=== PATIENT | female | born 1975 | race Caucasian/White ===

== ENCOUNTER 2017-03-31 14:20 | Inpatient (IN) | payer OTHER ==
[2017-03-31] MEDS ORDERED: NALOXONE 0.4 MG/ML 10 ML VIAL IVP STA (14:24)
[2017-03-31] MEDS ORDERED: ONDANSETRON 4 MG/2 ML VIAL IVP STA (14:24)
[2017-03-31] MEDS ORDERED: SODIUM CHLORIDE 0.9% 1,000 ML IV STA ×3 (14:26→14:33)
[2017-03-31] MEDS ORDERED: NALOXONE 0.4 MG/ML 1 ML VIAL IV STA (14:26)
--- NOTE | 2017-03-31 14:45 | ED ---
General Adult HPI - General Chief complaint: Overdose Stated complaint: Overdose Time Seen by Provider: 03/31/17 14:22 Source: police, EMS, RN notes reviewed, old records reviewed Mode of arrival: EMS Limitations: altered mental status - History of Present Illness Initial comments: This is a 41-year-old female to the ER for evaluation of unresponsive. Patient' s found passed out in the parking lot at the [employer] car. Patient was mildly responsive to Narcan per EMS but has remained unresponsive. The emergency room. Patient is arousable but still very somnolent. Patient is breathing. History obtained from otherwise EMS and patient's chart - Related Data Home Medications Medication Instructions Recorded Confirmed Loperamide [Imodium] 2 mg PO QID MDD 4 tablets 03/31/17 03/31/17 QUEtiapine FUMARATE [SEROquel] 300 mg PO HS 03/31/17 03/31/17 QUEtiapine [SEROquel] 50 mg PO BID 03/31/17 03/31/17 clonazePAM [KlonoPIN] 1 mg PO BID 03/31/17 03/31/17 lamoTRIgine [LaMICtal] 75 mg PO BID 03/31/17 03/31/17 Allergies Allergy/AdvReac Type Severity Reaction Status Date / Time Unable to Assess Allergy Unverified 03/31/17 14:30 Review of Systems ROS Statement: Those systems with pertinent positive or pertinent negative responses have been documented in the HPI. ROS Other: All systems not noted in ROS Statement are negative. Past Medical History Past Medical History: Unable to Obtain Past Surgical History: Unable to Obtain Smoking Status: Unknown if ever smoked Past Alcohol Use History: Unable to Obtain Past Drug Use History: Unable to Obtain General Exam Limitations: altered mental status General appearance: lethargic, obtunded, in distress Head exam: Present: atraumatic, normocephalic, normal inspection Eye exam: Present: normal appearance, PERRL, EOMI. Absent: scleral icterus, conjunctival injection, periorbital swelling ENT exam: Present: normal exam, mucous membranes moist Neck exam: Present: normal inspection. Absent: tenderness, meningismus, lymphadenopathy Respiratory exam: Present: normal lung sounds bilaterally. Absent: respiratory distress, wheezes, rales, rhonchi, stridor Cardiovascular Exam: Present: normal rhythm, tachycardia, normal heart sounds. Absent: systolic murmur, diastolic murmur, rubs, gallop, clicks GI/Abdominal exam: Present: soft, normal bowel sounds. Absent: distended, tenderness, guarding, rebound, rigid Extremities exam: Present: normal inspection, full ROM, normal capillary refill. Absent: tenderness, pedal edema, joint swelling, calf tenderness Back exam: Present: normal inspection Neurological exam: Present: alert, oriented X3, CN II-XII intact Psychiatric exam: Present: normal affect, normal mood Skin exam: Present: warm, dry, intact, normal color. Absent: rash Course Vital Signs 03/31/17 03/31/17 03/31/17 14:21 14:47 15:02 Temperature 97.9 F Pulse Rate 134 H 129 H 126 H Respiratory 16 18 18 Rate Blood Pressure 105/74 118/56 125/59 O2 Sat by Pulse 97 99 99 Oximetry 03/31/17 03/31/17 15:32 15:47 Temperature Pulse Rate 112 H 110 H Respiratory 18 18 Rate Blood Pressure 95/45 92/48 O2 Sat by Pulse 99 96 Oximetry - Reevaluation(s) Reevaluation #1: 03/31/17 14:44 Patient is generally unresponsive with no response to Narcan Reevaluation #2: 03/31/17 14:44 Patient is maintaining airway, no decreased oxygen saturation EKG Findings - EKG Comments: EKG Findings:: EKG shows sinus tachycardia rate 125, MO 160, QRS 84, QTc 502 Medical Decision Making - Medical Decision Making 41. The ER with overdose, found overdose not sure whether suicidal intent has overdosed, patient had multiple medications with her and tolerated pharmaceutic , subscribed, Main medication missing was quetiapine. Patient does have positive gag is breathing with oxygen saturations are 96%, patient will be admitted for monitoring of airway and level of consciousness - Lab Data Result diagrams: 03/31/17 14:58 03/31/17 14:58 Lab Results 03/31/17 03/31/17 03/31/17 Range/Units 14:58 14:58 14:58 WBC 6.9 (3.8-10.6) k/uL RBC 4.16 (3.80-5.40) m/uL Hgb 12.4 (11.4-16.0) gm/dL Hct 38.9 (34.0-46.0) % MCV 93.5 (80.0-100.0) fL MCH 29.8 (25.0-35.0) pg MCHC 31.9 (31.0-37.0) g/dL RDW 12.9 (11.5-15.5) % Plt Count 194 (150-450) k/uL Neutrophils % 77 % Lymphocytes % 16 % Monocytes % 5 % Eosinophils % 0 % Basophils % 0 % Neutrophils # 5.3 (1.3-7.7) k/uL Lymphocytes # 1.1 (1.0-4.8) k/uL Monocytes # 0.3 (0-1.0) k/uL Eosinophils # 0.0 (0-0.7) k/uL Basophils # 0.0 (0-0.2) k/uL PT (9.0-12.0) sec INR (<1.2) Sodium 138 (137-145) mmol/L Potassium 3.1 L (3.5-5.1) mmol/L Chloride 110 H (98-107) mmol/L Carbon Dioxide 16 L (22-30) mmol/L Anion Gap 12 mmol/L BUN 14 (7-17) mg/dL Creatinine 0.77 (0.52-1.04) mg/dL Est GFR (MDRD) Af Amer >60 (>60 ml/min/1.73 sqM) Est GFR (MDRD) Non-Af >60 (>60 ml/min/1.73 sqM) Glucose 250 H (74-99) mg/dL Calcium 8.3 L (8.4-10.2) mg/dL Total Bilirubin 0.3 (0.2-1.3) mg/dL AST 16 (14-36) U/L ALT 27 (9-52) U/L Alkaline Phosphatase 40 (38-126) U/L Total Creatine Kinase 43 (30-135) U/L CK-MB (CK-2) 0.4 (0.0-2.4) ng/mL CK-MB (CK-2) Rel Index 0.9 Troponin I <0.012 (0.000-0.034) ng/mL Total Protein 6.0 L (6.3-8.2) g/dL Albumin 3.5 (3.5-5.0) g/dL Lipase 33 (23-300) U/L Urine HCG, Qual (Not Detectd) Salicylates <1.0 mg/dL Urine Opiates Screen (NotDetected) Ur Oxycodone Screen (NotDetected) Urine Methadone Screen (NotDetected) Ur Propoxyphene Screen (NotDetected) Acetaminophen <10.0 ug/mL Ur Barbiturates Screen (NotDetected) U Tricyclic Antidepress (NotDetected) Ur Phencyclidine Scrn (NotDetected) Ur Amphetamines Screen (NotDetected) U Methamphetamines Scrn (NotDetected) U Benzodiazepines Scrn (NotDetected) Urine Cocaine Screen (NotDetected) U Marijuana (THC) Screen (NotDetected) Serum Alcohol <10 mg/dL 03/31/17 03/31/17 03/31/17 Range/Units 14:58 15:04 15:04 WBC (3.8-10.6) k/uL RBC (3.80-5.40) m/uL Hgb (11.4-16.0) gm/dL Hct (34.0-46.0) % MCV (80.0-100.0) fL MCH (25.0-35.0) pg MCHC (31.0-37.0) g/dL RDW (11.5-15.5) % Plt Count (150-450) k/uL Neutrophils % % Lymphocytes % % Monocytes % % Eosinophils % % Basophils % % Neutrophils # (1.3-7.7) k/uL Lymphocytes # (1.0-4.8) k/uL Monocytes # (0-1.0) k/uL Eosinophils # (0-0.7) k/uL Basophils # (0-0.2) k/uL PT 11.5 (9.0-12.0) sec INR 1.2 H (<1.2) Sodium (137-145) mmol/L Potassium (3.5-5.1) mmol/L Chloride (98-107) mmol/L Carbon Dioxide (22-30) mmol/L Anion Gap mmol/L BUN (7-17) mg/dL Creatinine (0.52-1.04) mg/dL Est GFR (MDRD) Af Amer (>60 ml/min/1.73 sqM) Est GFR (MDRD) Non-Af (>60 ml/min/1.73 sqM) Glucose (74-99) mg/dL Calcium (8.4-10.2) mg/dL Total Bilirubin (0.2-1.3) mg/dL AST (14-36) U/L ALT (9-52) U/L Alkaline Phosphatase (38-126) U/L Total Creatine Kinase (30-135) U/L CK-MB (CK-2) (0.0-2.4) ng/mL CK-MB (CK-2) Rel Index Troponin I (0.000-0.034) ng/mL Total Protein (6.3-8.2) g/dL Albumin (3.5-5.0) g/dL Lipase (23-300) U/L Urine HCG, Qual Not Detected (Not Detectd) Salicylates mg/dL Urine Opiates Screen Not Detected (NotDetected) Ur Oxycodone Screen Not Detected (NotDetected) Urine Methadone Screen Not Detected (NotDetected) Ur Propoxyphene Screen Not Detected (NotDetected) Acetaminophen ug/mL Ur Barbiturates Screen Not Detected (NotDetected) U Tricyclic Antidepress Detected H (NotDetected) Ur Phencyclidine Scrn Not Detected (NotDetected) Ur Amphetamines Screen Not Detected (NotDetected) U Methamphetamines Scrn Not Detected (NotDetected) U Benzodiazepines Scrn Not Detected (NotDetected) Urine Cocaine Screen Not Detected (NotDetected) U Marijuana (THC) Screen Detected H (NotDetected) Serum Alcohol mg/dL Disposition Clinical Impression: Drug overdose Disposition: ADMITTED IP TO THIS [facility] Condition: Serious Referrals: None,Stated [Primary Care Provider] - 1-2 days
[2017-03-31 15:10] LABS: Basophils % (A) 0 %; CH 30.5; CHCM 32.8; Eosinophils % (A) 0 %; HCT 38.9 % (34.0-46.0); HDW 2.23; HGB 12.4 gm/dL (11.4-16.0); Luc # (Auto) 0.09; Luc % (Auto) 1; Lymphocytes # (A) 1.1 k/uL (1.0-4.8); Lymphocytes % (A) 16 %; MCH 29.8 pg (25.0-35.0); MCHC 31.9 g/dL (31.0-37.0); MCV 93.5 fL (80.0-100.0); Mean Platelet Volume 7.5; Monocytes # (A) 0.3 k/uL (0-1.0); Monocytes % (A) 5 %; Neutrophils # (A) 5.3 k/uL (1.3-7.7); Neutrophils % (A) 77 %; RBC 4.16 m/uL (3.80-5.40); RDW 12.9 % (11.5-15.5); WBC 6.9 k/uL (3.8-10.6); WBC (Perox) 7.02
[2017-03-31 15:17] LABS: INR 1.2 (<1.2); Prothrombin Time 11.5 sec (9.0-12.0)
[2017-03-31 15:19] LABS: ALT 27 U/L (9-52); AST 16 U/L (14-36); Acetaminophen <10.0 ug/mL; Alcohol <10 mg/dL; Alkaline Phosphatase 40 U/L (38-126); Anion Gap 12 mmol/L; Blood Urea Nitrogen 14 mg/dL (7-17); Calcium 8.3 mg/dL (8.4-10.2); Carbon Dioxide 16 mmol/L (22-30); Chloride 110 mmol/L (98-107); Glucose 250 mg/dL (74-99); Non-African American GFR(MDRD) >60 (>60 ml/min/1.73 sqM); Potassium 3.1 mmol/L (3.5-5.1); Salicylate <1.0 mg/dL; Sodium 138 mmol/L (137-145); Total Bilirubin 0.3 mg/dL (0.2-1.3)
[2017-03-31 15:27] LABS: Creatine Kinase 43 U/L (30-135)
[2017-03-31 15:41] LABS: Creatine Kinase MB 0.4 ng/mL (0.0-2.4); Troponin I <0.012 ng/mL (0.000-0.034)
[2017-03-31] MEDS: POTASSIUM CHLORIDE 20 MEQ, LIDOCAINE 2% INJ 20 MG in SODIUM CHLORIDE 0.9% 100 ML IVPB SCH ×3 (17:09→22:09)
[2017-03-31] MEDS ORDERED: SODIUM CHLORIDE 0.9% 1,000 ML IV ONE ×2 (17:39→19:37)
[2017-03-31 18:43] LABS: Glucose,Whole Blood 95 mg/dL (75-99)
[2017-03-31] MEDS ORDERED: PROPOFOL 1,000 MG/100 ML VIAL IV ONE (19:10)
[2017-03-31] MEDS ORDERED: NOREPINEPHRIN 4 MG-0.9% NS PMX 4 MG/250 ML ML IV ONE (19:10)
[2017-03-31] MEDS ORDERED: MIDAZOLAM 2 MG/2 ML VIAL ONE (19:20)
[2017-03-31] MEDS ORDERED: SUCCINYLCHOLINE CHLORIDE 100 MG/5 ML SYR IV ONE (19:20)
[2017-03-31] MEDS ORDERED: PROPOFOL 10 MG/ML 20 ML VIAL IV ONE (19:20)
[2017-03-31] MEDS ORDERED: ROCURONIUM BROMIDE 10 MG/ML 10 ML VIAL IV ONE (19:20)
[2017-03-31 19:31] LABS: ABG HCO3 14 mmol/L (21-25); ABG PCO2 24 mmHg (35-45); ABG PH 7.38 (7.35-7.45); ABG PO2 115 mmHg (83-108); ABG TCO2 15 mmol/L (19-24)
[2017-03-31 19:32] LABS: ABG Base Excess -10.2 mmol/L
[2017-03-31 19:43] LABS: Amorphous Sediment,Urine Rare /hpf; Appearance,Urine Cloudy (Clear); Bilirubin,Urine Negative (Negative); Glucose,Urine (UA) 4+ (Negative); Ketones,Urine Negative (Negative); Leukocyte Esterase,Urine Negative (Negative); Mucus,Urine Rare /hpf; Nitrite,Urine Negative (Negative); Particle Count 4532; Protein,Urine 1+ (Negative); Specific Gravity,Urine 1.015 (1.001-1.035); UA Billing (MACRO vs. MICRO) MICRO; Urobilinogen,Urine <2.0 mg/dL (<2.0); WBC,Urine 1 /hpf (0-5)
--- NOTE | 2017-03-31 19:44 | XR ---
EXAMINATION TYPE: XR chest 1V portable DATE OF EXAM: 03/31/2017 COMPARISON: NONE HISTORY: Check tube placement TECHNIQUE: Single frontal view of the chest is obtained. FINDINGS: Nasogastric tube appears in good position. Endotracheal tube is in good position. Lungs ar e clear. There is no heart failure. There are chest leads. IMPRESSION: No active cardiopulmonary disease.
[2017-03-31] MEDS: PROPOFOL 1,000 MG/100 ML VIAL IV SCH ×2 (19:52→23:32)
[2017-03-31] MEDS ORDERED: NOREPINEPHRIN 4 MG-0.9% NS PMX 4 MG/250 ML ML IV SCH (20:00)
[2017-03-31 20:22] LABS: ABG Base Excess -8.3 mmol/L; ABG HCO3 17 mmol/L (21-25); ABG PCO2 34 mmHg (35-45); ABG PH 7.31 (7.35-7.45); ABG PO2 184 mmHg (83-108); ABG TCO2 18 mmol/L (19-24)
[2017-04-01 00:05] LABS: Glucose,Whole Blood 112 mg/dL (75-99)
[2017-04-01] MEDS: PANTOPRAZOLE 40 MG/10 ML VIAL IVP SCH ×3 (00:18→21:16)
[2017-04-01] MEDS: PROPOFOL 1,000 MG/100 ML VIAL IV SCH ×2 (03:51→07:33)
[2017-04-01 05:30] LABS: CH 29.5; HCT 36.8 % (34.0-46.0); HDW 2.21; HGB 11.5 gm/dL (11.4-16.0); Hypochromasia Slight; MCH 29.8 pg (25.0-35.0); MCHC 31.1 g/dL (31.0-37.0); MCV 95.8 fL (80.0-100.0); Mean Platelet Volume 7.7; RBC 3.85 m/uL (3.80-5.40); RDW 14.7 % (11.5-15.5); WBC 11.9 k/uL (3.8-10.6)
[2017-04-01 05:37] LABS: INR 1.1 (<1.2); Partial Thromboplastin Time 22.3 sec (22.0-30.0); Prothrombin Time 10.7 sec (9.0-12.0)
[2017-04-01 05:54] LABS: ALT 35 U/L (9-52); AST 16 U/L (14-36); Alkaline Phosphatase 40 U/L (38-126); Anion Gap 6 mmol/L; Blood Urea Nitrogen 10 mg/dL (7-17); Calcium 7.6 mg/dL (8.4-10.2); Carbon Dioxide 19 mmol/L (22-30); Chloride 117 mmol/L (98-107); Glucose 103 mg/dL (74-99); Magnesium 1.7 mg/dL (1.6-2.3); Non-African American GFR(MDRD) >60 (>60 ml/min/1.73 sqM); Phosphorus 2.4 mg/dL (2.5-4.5); Potassium 3.9 mmol/L (3.5-5.1); Sodium 142 mmol/L (137-145); Total Bilirubin 0.2 mg/dL (0.2-1.3); Total Protein 5.5 g/dL (6.3-8.2)
[2017-04-01] MEDS: MAGNESIUM SULFATE-D5W PMX 1 GM in DEXTROSE/WATER 1 100ML.BAG IVPB SCH ×2 (08:03→09:34)
[2017-04-01] MEDS: CHLORHEXIDINE GLUCONATE 15 ML CUP MUCOUS MEM SCH ×2 (08:04→20:29)
--- NOTE | 2017-04-01 08:30 | XR ---
EXAMINATION TYPE: XR chest 1V portable DATE OF EXAM: 04/01/2017 Comparison: 03/31/2017 Clinical History: 41-year-old female tube placement Findings: ET tube tip is at the level of the medial clavicular heads. NG tube has been pulled back and side ho le is located 6 cm above the GE junction. The tip is only 2.5 cm below the GE junction. The cardiomediastinal silhouette, aorta, and pulmonary vasculature are within normal limits. As chantal red to 03/31/2017, there is new airspace opacity throughout the left base, left lower lobe. Impression: 1. New consolidation at the basilar left lower lobe. Correlate for pneumonia. Underlying small effusi on difficult to exclude. 2. The NG tube has been pulled back. It could be advanced by 9 cm into the stomach.
[2017-04-01] MEDS: ENOXAPARIN 40 MG/0.4 ML SYRINGE SQ SCH (10:58)
[2017-04-01] MEDS: POTASSIUM CHLORIDE 10 MEQ, LIDOCAINE 2% INJ 10 MG in SODIUM CHLORIDE 0.9% 100 ML IV SCH ×2 (10:59→14:04)
[2017-04-01] MEDS: NICOTINE 21MG/24HR PATCH TRANSDERM SCH (14:03)
--- NOTE | 2017-04-01 14:06 | P.CNPUL ---
History of Present Illness Consult date: 04/01/17 Requesting physician: Jayne Austin Reason for consult: other (Seroquel overdose) Chief complaint: Altered mental status and passing out History of present illness: This is a 41-year-old female with history of depression, previous history of drug overdose, patient asked out in the parking, just prior to being brought to the emergency room. Patient was quite lethargic and obtunded when EMS arrived, Narcan was given, remained unresponsive, patient was arousable upon arrival to the ER but very somnolent. I received a call from the ER physician about this patient, and he felt that the patient was able to protect her airways, and did not feel the patient needed to be intubated. Apparently the patient tried to commit suicide with unknown quantity of Seroquel. Patient was admitted to the ICU without being intubated, however upon arrival to the ICU, I was notified by the nurse was taking care of the patient that the patient is extremely somnolent , cannot be aroused easily, patient is barely responding to sternal rubs, and her gag reflex was significantly diminished. Hence I recommended immediate intubation and mechanical ventilation overnight. Early this morning, I evaluated the patient off propofol and I felt that the patient could be weaned and extubated. Hence she was placed on a short course of pressure support of 8 , and CPAP, patient was noted to tolerate the weaning process quite well, hence I recommended extubation. Patient stated to me that she did that on purpose, and she was doing it over and over again. Hence I recommended psychiatric consultation, and most likely the patient will need to be admitted to psychiatry in the next 24 hours. Chest x-ray on admission showed no evidence of active disease. All her labs this morning were noted to be relatively unremarkable. And ABG while on mechanical ventilation was also reviewed. Patient feels depressed, denies any headaches no blurred vision no dizziness, no chest pain no nausea no vomiting no abdominal pain. Apparently the patient had previous episodes of suicidal attempts. Review of Systems 14 point review of systems were obtained, please refer to pertinent positives in HPI, otherwise remaining systems are negative. Past Medical History Past Medical History: GERD/Reflux Additional Past Medical History / Comment(s): History of depression History of Any Multi-Drug Resistant Organisms: None Reported Past Surgical History: Section Additional Past Surgical History / Comment(s): breast augmentation Past Anesthesia/Blood Transfusion Reactions: No Reported Reaction Smoking Status: Current every day smoker Medications and Allergies Home Medications Medication Instructions Recorded Confirmed Type Loperamide [Imodium] 2 mg PO QID MDD 4 tablets 03/31/17 03/31/17 History QUEtiapine FUMARATE [SEROquel] 300 mg PO HS 03/31/17 03/31/17 History QUEtiapine [SEROquel] 50 mg PO BID 03/31/17 03/31/17 History clonazePAM [KlonoPIN] 1 mg PO BID 03/31/17 03/31/17 History lamoTRIgine [LaMICtal] 75 mg PO BID 03/31/17 03/31/17 History Allergies Allergy/AdvReac Type Severity Reaction Status Date / Time Unable to Assess Allergy Unverified 04/01/17 06:14 Physical Exam Vitals: Vital Signs Temp Pulse Resp BP Pulse Ox 04/01/17 13:30 100 25 H 105/60 96 04/01/17 13:00 99 19 105/55 98 04/01/17 12:30 97 26 H 102/56 97 04/01/17 12:00 97 16 104/55 97 04/01/17 11:30 96 20 114/64 97 04/01/17 11:00 96 25 H 104/60 97 04/01/17 10:30 97 27 H 99/56 97 04/01/17 10:00 95 21 99/55 97 04/01/17 09:30 97 14 105/57 96 04/01/17 09:25 98 04/01/17 09:00 96 18 91/58 97 04/01/17 08:30 101 H 27 H 128/59 96 04/01/17 08:00 98 23 110/56 99 04/01/17 07:30 98.2 F 97 19 113/50 98 04/01/17 07:00 98 20 125/50 97 04/01/17 06:30 103 H 30 H 109/53 98 04/01/17 06:00 101 H 21 116/47 100 04/01/17 05:30 101 H 23 119/49 100 04/01/17 05:00 100 22 125/54 100 04/01/17 04:30 100 22 115/53 100 04/01/17 04:00 98.8 F 96 18 111/43 100 04/01/17 03:30 98 24 102/45 100 04/01/17 03:00 96 19 114/48 100 04/01/17 02:30 96 18 109/49 100 04/01/17 02:00 96 17 99/44 100 04/01/17 01:30 97 18 112/51 100 04/01/17 01:00 98.4 F 98 18 105/44 100 04/01/17 00:30 101 H 14 96/42 100 04/01/17 00:00 98 18 115/48 100 03/31/17 23:30 96 17 101/47 100 03/31/17 23:00 97 16 101/41 100 03/31/17 22:30 97 16 104/46 100 03/31/17 22:00 89 15 71/40 100 03/31/17 21:30 93 17 96/44 100 03/31/17 21:15 96 17 100 03/31/17 21:00 100 18 115/51 100 03/31/17 20:40 101 H 23 108/47 100 03/31/17 20:30 101 H 20 97/57 100 03/31/17 20:20 102 H 21 97/57 100 03/31/17 20:10 102 H 18 91/46 100 03/31/17 20:00 97.5 F L 99 16 93/46 100 03/31/17 19:50 101 H 16 88/59 100 03/31/17 19:40 100 16 92/47 100 03/31/17 19:30 103 H 15 84/40 100 03/31/17 19:20 110 H 13 112/59 90 L 03/31/17 19:10 111 H 16 97/51 100 03/31/17 19:00 111 H 18 100/44 100 03/31/17 18:50 111 H 19 95/49 100 03/31/17 18:40 111 H 17 100/45 100 03/31/17 18:30 110 H 19 100/45 100 03/31/17 18:20 109 H 17 103/49 100 03/31/17 18:10 97.4 F L 112 H 19 103/49 100 03/31/17 17:37 98.7 F 109 H 18 93/46 98 03/31/17 17:09 115 H 18 81/59 96 03/31/17 16:17 98.7 F 108 H 18 91/51 95 03/31/17 15:47 110 H 18 92/48 96 03/31/17 15:32 112 H 18 95/45 99 03/31/17 15:02 126 H 18 125/59 99 03/31/17 14:47 129 H 18 118/56 99 03/31/17 14:21 97.9 F 134 H 16 105/74 97 Intake and Output 03/31/17 04/01/17 04/01/17 22:59 06:59 14:59 Intake Total 1303.75 160.145 9650.971 Output Total 400 960 340 Balance 903.75 10.870 931.971 Intake: IV 300 800 700 Sodium Chloride 0.9% 1, 300 800 700 000 ml @ 100 mls/hr IV . Q10H [facility] Rx#:[id number] Intake, IV Titration 1003.75 170.870 571.971 Amount Magnesium Sulfate-D5w Pmx 200 1 gm In Dextrose/Water 1 100ml.bag @ 100 mls/hr IVPB Q1H [facility] Rx#: [id number] Norepinephrin 4 mg-0.9% 3.75 189.688 Ns Pmx 4 mg In 250 ml @ Titrate IV .Q0M [facility] Rx#: [id number] Potassium Chloride 10 meq 100 Lidocaine 2% Inj 10 mg In Sodium Chloride 0.9% 100 ml @ 100 mls/hr IV Q1HR [facility] Rx#:[id number] Propofol 1,000 mg In 100 170.870 82.283 ml @ Titrate IV .Q0M [facility] Rx#:[id number] Sodium Chloride 0.9% 1, 1000 000 ml @ 999 mls/hr IV . Q1H1M [facility] Rx#:[id number] Output: Urine 400 960 340 Other: Voiding Method Indwelling Catheter Indwelling Catheter Weight 63.9 kg Physical Exam: Revealed a 41-year-old female in no distress, on mechanical ventilation. Endotracheal tube is intact. HEENT:[Neck is supple.] [No neck masses.] [No thyromegaly.] [No JVD.] Chest: [Clear throughout, no crackles, no rhonchi, no wheezes.] Cardiac Exam: [Normal S1 and S2, no S3 gallop, no murmur.] Abdomen: [Soft, nontender, no megaly, no rebound, no guarding, normal bowel sounds.] Extremities: [No clubbing, no edema, no cyanosis.] Neurological Exam: No focal neurologic deficit was noted after extubation. Alert and oriented 3, Psychiatric: Depressed mood and blunted affect, otherwise normal mental status examination. Musculoskeletal: No deformities, normal range of motion, no weakness noted. Skin: No rashes, no erythema, no bruises. Results - Laboratory Findings CBC and BMP: 04/01/17 05:13 04/01/17 05:13 ABG ABG pH 7.31 (7.35-7.45) L 03/31/17 20:15 ABG pCO2 34 mmHg (35-45) L 03/31/17 20:15 ABG pO2 184 mmHg (83-108) H 03/31/17 20:15 ABG O2 Saturation 100.0 % (94-97) H 03/31/17 20:15 PT/INR, D-dimer PT 10.7 sec (9.0-12.0) 04/01/17 05:13 INR 1.1 (<1.2) 04/01/17 05:13 Abnormal lab findings: Abnormal Labs 03/31/17 03/31/17 03/31/17 14:58 14:58 15:04 WBC INR 1.2 H ABG pH ABG pCO2 ABG pO2 ABG HCO3 ABG Total CO2 ABG O2 Saturation Potassium 3.1 L Chloride 110 H Carbon Dioxide 16 L Glucose 250 H POC Glucose (mg/dL) Calcium 8.3 L Phosphorus Total Protein 6.0 L Albumin Urine Appearance Urine Protein Urine Glucose (UA) Amorphous Sediment Hyaline Casts Urine Mucus U Tricyclic Antidepress Detected H U Marijuana (THC) Screen Detected H 03/31/17 03/31/17 03/31/17 18:26 19:07 20:15 WBC INR ABG pH 7.31 L ABG pCO2 24 L 34 L ABG pO2 115 H 184 H ABG HCO3 14 L 17 L ABG Total CO2 15 L 18 L ABG O2 Saturation 99.0 H 100.0 H Potassium Chloride Carbon Dioxide Glucose POC Glucose (mg/dL) Calcium Phosphorus Total Protein Albumin Urine Appearance Cloudy H Urine Protein 1+ H Urine Glucose (UA) 4+ H Amorphous Sediment Rare H Hyaline Casts 7 H Urine Mucus Rare H U Tricyclic Antidepress U Marijuana (THC) Screen 04/01/17 04/01/17 04/01/17 00:02 05:13 05:13 WBC 11.9 H INR ABG pH ABG pCO2 ABG pO2 ABG HCO3 ABG Total CO2 ABG O2 Saturation Potassium Chloride 117 H Carbon Dioxide 19 L Glucose 103 H POC Glucose (mg/dL) 112 H Calcium 7.6 L Phosphorus 2.4 L Total Protein 5.5 L Albumin 3.1 L Urine Appearance Urine Protein Urine Glucose (UA) Amorphous Sediment Hyaline Casts Urine Mucus U Tricyclic Antidepress U Marijuana (THC) Screen - Diagnostic Findings Chest x-ray: image reviewed (No evidence of active disease) Assessment and Plan Assessment: Impression: 1 acute Seroquel overdose and unable to protect his airways, requiring intubation and mechanical ventilation. 2 history of depression, patient will need to be kept on suicidal precautions, and will need to have full psychiatric evaluation today possibly needs to be admitted to the psychiatric monge for further treatment. 3 previous episodes of hypotension secondary to Seroquel overdose, patient clearly does not have any evidence of septic or hypovolemic shock. Recommendation: Continue to monitor the patient in the ICU today, likely clear for psychiatric transfer in the next 24 hours. In the meantime continue suicidal precautions. Time with Patient: Greater than 30
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
--- NOTE | 2017-04-01 21:30 | P.HPIM ---
History of Present Illness H&P Date: 03/31/17 Chief Complaint: Drug overdose Patient is a 41-year-old female with a past medical history of depression and multiple suicide attempts and psychiatric admissions was brought to the ER for evaluation of unresponsive. Patient's found passed out in the parking lot at the [employer] car. Patient was mildly responsive to Narcan per EMS but has remained unresponsive. Patient apparently took Seroquel. Patient is arousable but still very somnolent. She is saturating well on nausea cannula. Cannot provide any history at this time. History obtained from otherwise EMS and patient's chart. UDS is positive for tricyclic antidepressants and marijuana Review of Systems Complete review of systems could not be a peripheral the patient Past Medical History Past Medical History: Unable to Obtain Past Surgical History: Unable to Obtain Smoking Status: Unknown if ever smoked Past Alcohol Use History: Unable to Obtain Past Drug Use History: Unable to Obtain Medications and Allergies Home Medications Medication Instructions Recorded Confirmed Type Loperamide [Imodium] 2 mg PO QID MDD 4 tablets 03/31/17 03/31/17 History QUEtiapine FUMARATE [SEROquel] 300 mg PO HS 03/31/17 03/31/17 History QUEtiapine [SEROquel] 50 mg PO BID 03/31/17 03/31/17 History clonazePAM [KlonoPIN] 1 mg PO BID 03/31/17 03/31/17 History lamoTRIgine [LaMICtal] 75 mg PO BID 03/31/17 03/31/17 History Allergies Allergy/AdvReac Type Severity Reaction Status Date / Time Unable to Assess Allergy Unverified 04/01/17 06:14 Physical Exam Vitals: Vital Signs Temp Pulse Resp BP Pulse Ox 03/31/17 21:30 93 18 96/44 100 03/31/17 21:15 96 17 100 03/31/17 21:00 100 18 115/51 100 03/31/17 20:40 101 H 23 108/47 100 03/31/17 20:30 101 H 20 97/57 100 03/31/17 20:20 102 H 21 97/57 100 03/31/17 20:10 102 H 18 91/46 100 03/31/17 20:00 97.5 F L 99 16 93/46 100 03/31/17 19:50 101 H 16 88/59 100 03/31/17 19:40 100 16 92/47 100 03/31/17 19:30 103 H 15 84/40 100 03/31/17 19:20 110 H 13 112/59 90 L 03/31/17 19:10 111 H 16 97/51 100 03/31/17 19:00 111 H 18 100/44 100 03/31/17 18:50 111 H 19 95/49 100 03/31/17 18:40 111 H 17 100/45 100 03/31/17 18:30 110 H 19 100/45 100 03/31/17 18:20 109 H 17 103/49 100 03/31/17 18:10 97.4 F L 112 H 19 103/49 100 03/31/17 17:37 98.7 F 109 H 18 93/46 98 03/31/17 17:09 115 H 18 81/59 96 03/31/17 16:17 98.7 F 108 H 18 91/51 95 03/31/17 15:47 110 H 18 92/48 96 03/31/17 15:32 112 H 18 95/45 99 03/31/17 15:02 126 H 18 125/59 99 03/31/17 14:47 129 H 18 118/56 99 03/31/17 14:21 97.9 F 134 H 16 105/74 97 Intake and Output 03/31/17 03/31/17 03/31/17 06:59 14:59 22:59 Intake Total 1200 Output Total 200 Balance 1000 Intake: IV 200 Sodium Chloride 0.9% 1, 200 000 ml @ 100 mls/hr IV . Q10H [facility] Rx#:[id number] Intake, IV Titration 1000 Amount Sodium Chloride 0.9% 1, 1000 000 ml @ 999 mls/hr IV . Q1H1M [facility] Rx#:[id number] Output: Urine 200 Other: Voiding Method Indwelling Catheter Weight 68.039 kg Patient Weight 04/01/17 06:59 Weight 68.039 kg PHYSICAL EXAMINATION: Patient is lying in the bed comfortably, no acute distress, patient is drowsy and somnolent could not provide any history HEENT: Normocephalic. Neck is supple. Pupils reactive. Nostrils clear. Oral cavity is moist. Ears reveal no drainage. Neck reveals no JVD, carotid bruits, or thyromegaly. CHEST EXAMINATION: Trachea is central. Symmetrical expansion. Lung norton clear to auscultation and percussion. CARDIAC: Normal S1, S2 with no gallops. No murmurs ABDOMEN: Soft. Bowel sounds normal. No organomegaly. No abdominal bruits. Extremities: reveal no edema. No clubbing or cyanosis Neurologically somnolent. No focal deficits noted Skin: No rash or skin lesions. Psychiatric: Could not be assessed Musculoskeletal: No joint swelling or deformity. Normal range of motion. Results CBC & Chem 7: 04/01/17 05:13 04/01/17 05:13 Labs: Abnormal Lab Results - Last 24 Hours (Table) 03/31/17 03/31/17 03/31/17 Range/Units 14:58 14:58 15:04 INR 1.2 H (<1.2) ABG pH (7.35-7.45) ABG pCO2 (35-45) mmHg ABG pO2 (83-108) mmHg ABG HCO3 (21-25) mmol/L ABG Total CO2 (19-24) mmol/L ABG O2 Saturation (94-97) % Potassium 3.1 L (3.5-5.1) mmol/L Chloride 110 H (98-107) mmol/L Carbon Dioxide 16 L (22-30) mmol/L Glucose 250 H (74-99) mg/dL Calcium 8.3 L (8.4-10.2) mg/dL Total Protein 6.0 L (6.3-8.2) g/dL Urine Appearance (Clear) Urine Protein (Negative) Urine Glucose (UA) (Negative) Amorphous Sediment (None) /hpf Hyaline Casts (0-2) /lpf Urine Mucus (None) /hpf U Tricyclic Antidepress Detected H (NotDetected) U Marijuana (THC) Screen Detected H (NotDetected) 03/31/17 03/31/17 03/31/17 Range/Units 18:26 19:07 20:15 INR (<1.2) ABG pH 7.31 L (7.35-7.45) ABG pCO2 24 L 34 L (35-45) mmHg ABG pO2 115 H 184 H (83-108) mmHg ABG HCO3 14 L 17 L (21-25) mmol/L ABG Total CO2 15 L 18 L (19-24) mmol/L ABG O2 Saturation 99.0 H 100.0 H (94-97) % Potassium (3.5-5.1) mmol/L Chloride (98-107) mmol/L Carbon Dioxide (22-30) mmol/L Glucose (74-99) mg/dL Calcium (8.4-10.2) mg/dL Total Protein (6.3-8.2) g/dL Urine Appearance Cloudy H (Clear) Urine Protein 1+ H (Negative) Urine Glucose (UA) 4+ H (Negative) Amorphous Sediment Rare H (None) /hpf Hyaline Casts 7 H (0-2) /lpf Urine Mucus Rare H (None) /hpf U Tricyclic Antidepress (NotDetected) U Marijuana (THC) Screen (NotDetected) Assessment and Plan Assessment: #1 acute drug overdose with Seroquel #2 depression and suicide attempt #3 previous history of psychiatric admission #4 hypokalemia Plan: Patient will be continued on IV hydration and supportive care. Hemodynamically stable. We'll continue to follow closely and further recommendations based on the clinical course. Psychiatric consult.
--- NOTE | 2017-04-01 23:55 | P.PN ---
Subjective Progress Note Date: 04/01/17 Principal diagnosis: Drug overdose and attempted suicide Patient is a 41-year-old female with a past medical history of depression and multiple suicide attempts and psychiatric admissions was brought to the ER for evaluation of unresponsive. Patient's found passed out in the parking lot at the [employer] car. Patient was mildly responsive to Narcan per EMS but has remained unresponsive. Patient apparently took Seroquel. Patient is arousable but still very somnolent. She is saturating well on nausea cannula. Cannot provide any history at this time. History obtained from otherwise EMS and patient's chart. UDS is positive for tricyclic antidepressants and marijuana 04/01/2017 Patient is more awake and oriented today. Patient admits that she took Seroquel and Lamictal. No nausea vomiting or abdominal pain. No headache or dizziness. Hemodynamically stable. Patient is being transferred to medical floor. Seen by psychiatry. Objective - Vital Signs Vital signs: Vital Signs Temp 98.9 F 04/01/17 22:17 Pulse 104 H 04/01/17 22:17 Resp 16 04/01/17 22:17 BP 115/57 04/01/17 22:17 Pulse Ox 94 L 04/01/17 22:17 Intake & Output 04/01/17 04/01/17 04/02/17 06:59 18:59 06:59 Intake Total 2274.620 1321.971 Output Total 1360 340 Balance 914.620 981.971 Weight 63.9 kg Intake: IV 1100 700 Sodium Chloride 0.9% 1, 1100 700 000 ml @ 100 mls/hr IV . Q10H [facility] Rx#:[id number] Intake, IV Titration 1174.620 621.971 Amount Magnesium Sulfate-D5w Pmx 200 1 gm In Dextrose/Water 1 100ml.bag @ 100 mls/hr IVPB Q1H [facility] Rx#: [id number] Norepinephrin 4 mg-0.9% 3.75 189.688 Ns Pmx 4 mg In 250 ml @ Titrate IV .Q0M [facility] Rx#: [id number] Potassium Chloride 10 meq 150 Lidocaine 2% Inj 10 mg In Sodium Chloride 0.9% 100 ml @ 100 mls/hr IV Q1HR [facility] Rx#:[id number] Propofol 1,000 mg In 100 170.870 82.283 ml @ Titrate IV .Q0M [facility] Rx#:[id number] Sodium Chloride 0.9% 1, 1000 000 ml @ 999 mls/hr IV . Q1H1M [facility] Rx#:[id number] Output: Urine 1360 340 Other: Voiding Method Indwelling Catheter Indwelling Catheter - Exam PHYSICAL EXAMINATION: Patient is lying in the bed comfortably, no acute distress, awake alert and oriented.. HEENT: Normocephalic. Neck is supple. Pupils reactive. Nostrils clear. Oral cavity is moist. Ears reveal no drainage. Neck reveals no JVD, carotid bruits, or thyromegaly. CHEST EXAMINATION: Trachea is central. Symmetrical expansion. Lung norton clear to auscultation and percussion. CARDIAC: Normal S1, S2 with no gallops. No murmurs ABDOMEN: Soft. Bowel sounds normal. No organomegaly. No abdominal bruits. Extremities: reveal no edema. No clubbing or cyanosis Neurologically awake, alert, oriented x3 with well-coordinated movements. No focal deficits noted Skin: No rash or skin lesions. Psychiatric: Cooperative. Nonsuicidal Musculoskeletal: No joint swelling or deformity. Normal range of motion. - Labs CBC & Chem 7: 04/01/17 05:13 04/01/17 05:13 Labs: Abnormal Lab Results - Last 24 Hours (Table) 04/01/17 04/01/17 04/01/17 Range/Units 00:02 05:13 05:13 WBC 11.9 H (3.8-10.6) k/uL Chloride 117 H (98-107) mmol/L Carbon Dioxide 19 L (22-30) mmol/L Glucose 103 H (74-99) mg/dL POC Glucose (mg/dL) 112 H (75-99) mg/dL Calcium 7.6 L (8.4-10.2) mg/dL Phosphorus 2.4 L (2.5-4.5) mg/dL Total Protein 5.5 L (6.3-8.2) g/dL Albumin 3.1 L (3.5-5.0) g/dL Microbiology - Last 24 Hours (Table) 03/31/17 19:40 Gram Stain - Preliminary Sputum Sputum Culture - Preliminary Assessment and Plan Assessment: #1 acute drug overdose with Seroquel and Lamictal #2 depression and suicide attempt #3 previous history of psychiatric admission #4 hypokalemia Plan: Patient will be continued on IV hydration and supportive care. Hemodynamically stable. Psychiatric is following We'll continue to follow closely and further recommendations based on the clinical course. Psychiatric consult.
[2017-04-02] MEDS: NICOTINE 21MG/24HR PATCH TRANSDERM SCH (08:11)
[2017-04-02] MEDS: CHLORHEXIDINE GLUCONATE 15 ML CUP MUCOUS MEM SCH (08:12)
[2017-04-02] MEDS: PANTOPRAZOLE 40 MG/10 ML VIAL IVP SCH (08:12)
[2017-04-02] MEDS: ENOXAPARIN 40 MG/0.4 ML SYRINGE SQ SCH (08:12)
--- NOTE | 2017-04-02 11:37 | P.PN ---
Subjective Progress Note Date: 04/02/17 Principal diagnosis: Acute Seroquel overdose and acute hypoxic respiratory failure secondary to [employer] depression as a result of overdose This is a 41-year-old female with history of depression, previous history of drug overdose, patient asked out in the parking, just prior to being brought to the emergency room. Patient was quite lethargic and obtunded when EMS arrived, Narcan was given, remained unresponsive, patient was arousable upon arrival to the ER but very somnolent. I received a call from the ER physician about this patient, and he felt that the patient was able to protect her airways, and did not feel the patient needed to be intubated. Apparently the patient tried to commit suicide with unknown quantity of Seroquel. Patient was admitted to the ICU without being intubated, however upon arrival to the ICU, I was notified by the nurse was taking care of the patient that the patient is extremely somnolent , cannot be aroused easily, patient is barely responding to sternal rubs, and her gag reflex was significantly diminished. Hence I recommended immediate intubation and mechanical ventilation overnight. Early this morning, I evaluated the patient off propofol and I felt that the patient could be weaned and extubated. Hence she was placed on a short course of pressure support of 8 , and CPAP, patient was noted to tolerate the weaning process quite well, hence I recommended extubation. Patient stated to me that she did that on purpose, and she was doing it over and over again. Hence I recommended psychiatric consultation, and most likely the patient will need to be admitted to psychiatry in the next 24 hours. Chest x-ray on admission showed no evidence of active disease. All her labs this morning were noted to be relatively unremarkable. And ABG while on mechanical ventilation was also reviewed. Patient feels depressed, denies any headaches no blurred vision no dizziness, no chest pain no nausea no vomiting no abdominal pain. Apparently the patient had previous episodes of suicidal attempts. On 04/02/2017 patient is seen in follow-up on medical surgical floor, with a suicide sitter at the bedside. She is awake alert, in no acute distress, she denies any respiratory difficulty, her oxygenation is stable on room air she is satting 95%. Her lung sounds are clear to auscultation, no wheezing, no rhonchi , no rales or unappreciated. She is tolerating clear liquid diet, she has been up ambulating to the bathroom and tolerating activity very well. No major issues overnight. She has been afebrile. She is using her incentive spirometer. Remains stable from pulmonary standpoint, we will follow this patient on as-needed basis. Objective - Vital Signs Vital signs: Vital Signs Temp 98.6 F 04/02/17 07:00 Pulse 101 H 04/02/17 08:00 Resp 12 04/02/17 08:00 BP 130/60 04/02/17 07:00 Pulse Ox 95 04/02/17 07:00 Intake & Output 04/01/17 04/02/17 04/02/17 18:59 06:59 18:59 Intake Total 1321.971 Output Total 340 50 Balance 981.971 -50 Intake: IV 700 Sodium Chloride 0.9% 1, 700 000 ml @ 100 mls/hr IV . Q10H [facility] Rx#:[id number] Intake, IV Titration 621.971 Amount Magnesium Sulfate-D5w Pmx 200 1 gm In Dextrose/Water 1 100ml.bag @ 100 mls/hr IVPB Q1H [facility] Rx#: [id number] Norepinephrin 4 mg-0.9% 189.688 Ns Pmx 4 mg In 250 ml @ Titrate IV .Q0M [facility] Rx#: [id number] Potassium Chloride 10 meq 150 Lidocaine 2% Inj 10 mg In Sodium Chloride 0.9% 100 ml @ 100 mls/hr IV Q1HR [facility] Rx#:[id number] Propofol 1,000 mg In 100 82.283 ml @ Titrate IV .Q0M [facility] Rx#:[id number] Output: Urine 340 50 Other: Voiding Method Indwelling Catheter Toilet Toilet # Voids 1 - Exam Physical Exam: Revealed a 41-year-old female in no distress, on mechanical ventilation. Endotracheal tube is intact. HEENT:[Neck is supple.] [No neck masses.] [No thyromegaly.] [No JVD.] Chest: [Clear throughout, no crackles, no rhonchi, no wheezes.] Cardiac Exam: [Normal S1 and S2, no S3 gallop, no murmur.] Abdomen: [Soft, nontender, no megaly, no rebound, no guarding, normal bowel sounds.] Extremities: [No clubbing, no edema, no cyanosis.] Neurological Exam: No focal neurologic deficit was noted after extubation. Alert and oriented 3, Psychiatric: Depressed mood and blunted affect, otherwise normal mental status examination. Musculoskeletal: No deformities, normal range of motion, no weakness noted. Skin: No rashes, no erythema, no bruises. - Labs CBC & Chem 7: 04/01/17 05:13 04/01/17 05:13 Labs: Microbiology - Last 24 Hours (Table) 03/31/17 19:40 Gram Stain - Final Sputum Sputum Culture - Final Assessment and Plan Plan: Assessment: Impression: 1 acute Seroquel overdose and unable to protect his airways, requiring intubation and mechanical ventilation. 2 history of depression, patient will need to be kept on suicidal precautions, and will need to have full psychiatric evaluation today possibly needs to be admitted to the psychiatric monge for further treatment. 3 previous episodes of hypotension secondary to Seroquel overdose, patient clearly does not have any evidence of septic or hypovolemic shock. Recommendation: Patient is doing very well, no significant events overnight, no respiratory difficulty. Stable oxygenation, tolerating activity well. From pulmonary critical care standpoint, she can be cleared for discharge to the psychiatric monge for further treatment. I performed a history & physical examination of the patient and discussed their management with my nurse practitioner, Aidee Hampton. I reviewed the nurse practitioner's note and agree with the documented findings and plan of care. Lung sounds are are clear, no oxygenation issues no significant events. She is cleared for discharge to the psychiatric monge from pulmonary critical care standpoint. The findings and the impression was discussed with the patient. I attest to the documentation by the nurse practitioner. Time with Patient: Less than 30
--- NOTE | 2017-04-02 15:48 | CDI ---
In responding to this query, please exercise your independent professional judgment. The [facility] Coding Staff and Clinical Documentation Specialists appreciate your assistance in clarifying documentation, maintaining compliance with coding guidelines, accurately documenting patients condition and capturing severity of illness. The fact that a question is asked does not imply that any particular answer is desired or expected. Communication forms are a method of clarifying documentation and are not made part of the Legal Health Record. Thank you in advance for your clarification. Last Revision, July 2015 Yazmin Fairchild [address] [facility] [address] [place] [address] Documentation Clarification Form Date: 04/02/2017 3:30:00 PM From: Anette Viera Admit Date: 03/31/2017 4:47:00 PM Patient Name: Tiara Duran Visit Number: [id number] Discharge Date: Dr. Anu Harris Altered mental status was documented in the ED evaluation, H&P and progress notes. Patient history/risk factors: Depression, Clinical Indicators: Patient brought to ER by EMS, was lethargic and obtunded, in distress. Narcan was give, remained unresponsive. Initially was able to protect her airway, she was admitted to ICU and was intubated. Vital signs on admission: 105/74 134 16 97.9, 92/48 110 18 96 % Labs: K+ 3.1 Cl 110, C02 16 Urine drug screen: Tricyclic antidepressant, THC CXR: No acute disease Treatment: ICU/monitoring Intubation/Mechinical ventilation Neurovascular checks In your professional opinion, please clarify the etiology of the altered mental status, if known. Encephalopathy (specify Type: Metabolic, Toxic, Other, and Underlying Medical Illness) Delirium (specify cause): Dementia (if know, specify Type and if with/without Behavioral Disturbance) Other condition (please specify) Unable to determine Please document in your progress notes and discharge summary in order to capture severity of illness and risk of mortality. Include clinical findings that support your diagnosis. FYI: Press F11 to launch patient chart. MTD[place]olton
[2017-04-02] MEDS: PANTOPRAZOLE 40 MG TABLET PO SCH (17:19)
--- NOTE | 2017-04-02 20:54 | P.PN ---
Subjective Progress Note Date: 04/02/17 Principal diagnosis: Bipolar disorder, unspecified Interval History: Patient is 41 year old female who recently overdosed on Seroquel + Lamictal with intention of . This was patient's 5th SA, 4th this last year. Patient is awake, alert, cooperative with interview today. She is much less resistant to the idea of inpatient hospitalization today and readily admits that she recognizes her suicidally is abnormal however she maintains her nonchalance about such although less so than previous exam. Patient is more interested today in discussing a new medication regimen to help with her depression and anxiety. Patient was encouraged to set realistic goals, and instructed to view psychotropics as a tool not a solution to her depression and anxiety. Patient was instructed that she must be an active participant in her own recovery and develop healthier coping skills. SW attempted several times today to contact multiple other hospital but apparently no beds were available, however it remains unclear at present if patient will be admitted here or to a hospital in her [place]. Mental Status Exam: Appearance: alert, well groomed, hospital garb, appears stated age Behavior: no psychomotor agitation or psychomotor retardation, no abnormal movements, fair eye contact Attitude: cooperative Speech: normal rate, rhythm, fluency, articulation, volume, and prosody; primary language: [place] Mood: mildly anxious Affect: reactive, full range Thought processes: linear Thought content: patient does not appear to be responding to internal stimuli; patient denies auditory and visual hallucinations, no delusions appreciated Insight: fair? Judgment:exceptionally poor Cognitive: oriented to all 3 spheres, average intelligence Objective - Vital Signs Vital signs: Vital Signs Temp 98.0 F 04/02/17 15:00 Pulse 101 H 04/02/17 15:00 Resp 12 04/02/17 15:21 BP 131/70 04/02/17 15:00 Pulse Ox 95 04/02/17 07:00 Intake & Output 04/02/17 04/02/17 04/03/17 06:59 18:59 06:59 Output Total 50 Balance -50 Output: Urine 50 Other: Voiding Method Toilet Toilet # Voids 1 1 - Labs CBC & Chem 7: 04/01/17 05:13 04/01/17 05:13 Labs: Microbiology - Last 24 Hours (Table) 03/31/17 19:40 Gram Stain - Final Sputum Sputum Culture - Final Assessment and Plan (1) Bipolar disorder Narrative/Plan: Restart Lamictal 100-mg -mg PO BID Restart Klonopin 1-mg PO BID Start Saphris 5-mg SL QHS Current Visit: Yes Status: Acute Code(s): F31.9 - BIPOLAR DISORDER, UNSPECIFIED SNOMED Code(s): 55955608 (2) Borderline personality disorder Narrative/Plan: Discussed OP DBT again with patient Current Visit: Yes Status: Acute Code(s): F60.3 - BORDERLINE PERSONALITY DISORDER SNOMED Code(s): 85862024 (3) Antipsychotic overdose Current Visit: Yes Status: Acute Code(s): T43.501A - POISONING BY UNSP ANTIPSYCHOT/NEUROLEPT, ACCIDENTAL, INIT SNOMED Code(s): 14701875 (4) Overdose of anticonvulsant Current Visit: Yes Status: Acute Code(s): T42.71XA - POISN BY UNSP ANTIEPLPTC AND SED-HYPNTC DRUGS, ACC, INIT SNOMED Code(s): 578571472 Plan: Admit to Psychiatry on an involuntary basis First clinical certificate will need to be completed by the primary team prior to admission Due to patient being out of [facility], her insurance will need to be contacted to see if they require transfer or if they will authorize care here. There has been some confusion over patients home address so her Medicaid file will likely need to be referenced for the address on file to determine if patient is or is not homeless Psychiatry will follow Time with Patient: Greater than 30
[2017-04-02] MEDS: ASENAPINE 5 MG TAB SUBLINGUAL SCH (22:04)
[2017-04-02] MEDS: clonazePAM 1 MG TAB PO SCH (22:04)
[2017-04-02] MEDS: lamoTRIgine 100 MG TAB PO SCH (22:04)
--- NOTE | 2017-04-02 23:29 | P.PN ---
Subjective Progress Note Date: 04/02/17 Principal diagnosis: Drug overdose and attempted suicide Patient is a 41-year-old female with a past medical history of depression and multiple suicide attempts and psychiatric admissions was brought to the ER for evaluation of unresponsive. Patient's found passed out in the parking lot at the [employer] car. Patient was mildly responsive to Narcan per EMS but has remained unresponsive. Patient apparently took Seroquel. Patient is arousable but still very somnolent. She is saturating well on nausea cannula. Cannot provide any history at this time. History obtained from otherwise EMS and patient's chart. UDS is positive for tricyclic antidepressants and marijuana 04/01/2017 Patient is more awake and oriented today. Patient admits that she took Seroquel and Lamictal. No nausea vomiting or abdominal pain. No headache or dizziness. Hemodynamically stable. Patient is being transferred to medical floor. Seen by psychiatry. 04/02/2017 Patient denied any new complaints today. Patient was petitioned for inpatient psychiatric unit transfer. No fever no chills. No complaints of chest pain or short of breath. No other acute overnight issues. Current medications reviewed Objective - Vital Signs Vital signs: Vital Signs Temp 98.0 F 04/02/17 15:00 Pulse 101 H 04/02/17 15:00 Resp 12 04/02/17 15:21 BP 131/70 04/02/17 15:00 Pulse Ox 95 04/02/17 07:00 Intake & Output 04/02/17 04/02/17 04/03/17 06:59 18:59 06:59 Output Total 50 Balance -50 Output: Urine 50 Other: Voiding Method Toilet Toilet # Voids 1 1 - Exam PHYSICAL EXAMINATION: Patient is lying in the bed comfortably, no acute distress, awake alert and oriented.. HEENT: Normocephalic. Neck is supple. Pupils reactive. Nostrils clear. Oral cavity is moist. Ears reveal no drainage. Neck reveals no JVD, carotid bruits, or thyromegaly. CHEST EXAMINATION: Trachea is central. Symmetrical expansion. Lung norton clear to auscultation and percussion. CARDIAC: Normal S1, S2 with no gallops. No murmurs ABDOMEN: Soft. Bowel sounds normal. No organomegaly. No abdominal bruits. Extremities: reveal no edema. No clubbing or cyanosis Neurologically awake, alert, oriented x3 with well-coordinated movements. No focal deficits noted Skin: No rash or skin lesions. Psychiatric: Cooperative. Nonsuicidal Musculoskeletal: No joint swelling or deformity. Normal range of motion. - Labs CBC & Chem 7: 04/01/17 05:13 04/01/17 05:13 Labs: Microbiology - Last 24 Hours (Table) 03/31/17 19:40 Gram Stain - Final Sputum Sputum Culture - Final Assessment and Plan Assessment: #1 acute drug overdose with Seroquel and Lamictal #2 depression and suicide attempt #3 previous history of psychiatric admission #4 hypokalemia Plan: Patient is tolerating oral diet and continue with supportive care. Hemodynamically stable. Psychiatric is following We'll continue to follow closely and further recommendations based on the clinical course. Awaiting transfer to inpatient psychiatric unit.
[2017-04-03] MEDS: PANTOPRAZOLE 40 MG TABLET PO SCH ×2 (08:25→18:25)
[2017-04-03] MEDS: ENOXAPARIN 40 MG/0.4 ML SYRINGE SQ SCH (08:25)
[2017-04-03] MEDS: NICOTINE 21MG/24HR PATCH TRANSDERM SCH (08:25)
[2017-04-03] MEDS: clonazePAM 0.5 MG TAB PO SCH ×2 (08:25→12:15)
[2017-04-03] MEDS: lamoTRIgine 100 MG TAB PO SCH ×2 (08:25→20:23)
[2017-04-03] MEDS: clonazePAM 1 MG TAB PO SCH (20:23)
[2017-04-03] MEDS: ASENAPINE 5 MG TAB SUBLINGUAL SCH (20:23)
--- NOTE | 2017-04-03 22:56 | P.PN ---
Subjective Progress Note Date: 04/03/17 Principal diagnosis: Drug overdose and attempted suicide Patient is a 41-year-old female with a past medical history of depression and multiple suicide attempts and psychiatric admissions was brought to the ER for evaluation of unresponsive. Patient's found passed out in the parking lot at the [employer] car. Patient was mildly responsive to Narcan per EMS but has remained unresponsive. Patient apparently took Seroquel. Patient is arousable but still very somnolent. She is saturating well on nausea cannula. Cannot provide any history at this time. History obtained from otherwise EMS and patient's chart. UDS is positive for tricyclic antidepressants and marijuana 04/01/2017 Patient is more awake and oriented today. Patient admits that she took Seroquel and Lamictal. No nausea vomiting or abdominal pain. No headache or dizziness. Hemodynamically stable. Patient is being transferred to medical floor. Seen by psychiatry. 04/02/2017 Patient denied any new complaints today. Patient was petitioned for inpatient psychiatric unit transfer. No fever no chills. No complaints of chest pain or short of breath. No other acute overnight issues. 04/03/2017 Patient denied any new complaints. Awaiting to be transferred to inpatient psychiatric unit. Current medications reviewed Objective - Vital Signs Vital signs: Vital Signs Temp 98.2 F 04/03/17 15:00 Pulse 111 H 04/03/17 15:00 Resp 16 04/03/17 16:00 BP 119/69 04/03/17 15:00 Pulse Ox 95 04/03/17 15:00 Intake & Output 04/03/17 04/03/17 04/04/17 06:59 18:59 06:59 Intake Total 620 Balance 620 Intake: Oral 620 Other: Voiding Method Toilet Toilet # Voids 2 2 - Exam PHYSICAL EXAMINATION: Patient is lying in the bed comfortably, no acute distress, awake alert and oriented.. HEENT: Normocephalic. Neck is supple. Pupils reactive. Nostrils clear. Oral cavity is moist. Ears reveal no drainage. Neck reveals no JVD, carotid bruits, or thyromegaly. CHEST EXAMINATION: Trachea is central. Symmetrical expansion. Lung norton clear to auscultation and percussion. CARDIAC: Normal S1, S2 with no gallops. No murmurs ABDOMEN: Soft. Bowel sounds normal. No organomegaly. No abdominal bruits. Extremities: reveal no edema. No clubbing or cyanosis Neurologically awake, alert, oriented x3 with well-coordinated movements. No focal deficits noted Skin: No rash or skin lesions. Psychiatric: Cooperative. Nonsuicidal Musculoskeletal: No joint swelling or deformity. Normal range of motion. - Labs CBC & Chem 7: 04/01/17 05:13 04/01/17 05:13 Assessment and Plan Assessment: #1 acute drug overdose with Seroquel and Lamictal #2 depression and suicide attempt #3 previous history of psychiatric admission #4 hypokalemia Plan: Patient is tolerating oral diet and continue with supportive care. Hemodynamically stable. Psychiatric is following We'll continue to follow closely and further recommendations based on the clinical course. Awaiting transfer to inpatient psychiatric unit.
[2017-04-04] MEDS: PANTOPRAZOLE 40 MG TABLET PO SCH ×2 (07:44→18:38)
[2017-04-04] MEDS: NICOTINE 21MG/24HR PATCH TRANSDERM SCH (07:44)
[2017-04-04] MEDS: lamoTRIgine 100 MG TAB PO SCH ×2 (07:45→20:11)
[2017-04-04] MEDS: ENOXAPARIN 40 MG/0.4 ML SYRINGE SQ SCH (07:45)
[2017-04-04] MEDS: clonazePAM 0.5 MG TAB PO SCH ×2 (07:48→12:41)
[2017-04-04] MEDS ORDERED: IBUPROFEN 200 MG TAB PO PRN (18:02)
[2017-04-04] MEDS: clonazePAM 1 MG TAB PO SCH (20:11)
[2017-04-04] MEDS: ASENAPINE 5 MG TAB SUBLINGUAL SCH (20:11)
--- NOTE | 2017-04-04 22:25 | P.PN ---
Subjective Progress Note Date: 04/04/17 Principal diagnosis: Drug overdose and attempted suicide Patient is a 41-year-old female with a past medical history of depression and multiple suicide attempts and psychiatric admissions was brought to the ER for evaluation of unresponsive. Patient's found passed out in the parking lot at the [employer] car. Patient was mildly responsive to Narcan per EMS but has remained unresponsive. Patient apparently took Seroquel. Patient is arousable but still very somnolent. She is saturating well on nausea cannula. Cannot provide any history at this time. History obtained from otherwise EMS and patient's chart. UDS is positive for tricyclic antidepressants and marijuana 04/01/2017 Patient is more awake and oriented today. Patient admits that she took Seroquel and Lamictal. No nausea vomiting or abdominal pain. No headache or dizziness. Hemodynamically stable. Patient is being transferred to medical floor. Seen by psychiatry. 04/02/2017 Patient denied any new complaints today. Patient was petitioned for inpatient psychiatric unit transfer. No fever no chills. No complaints of chest pain or short of breath. No other acute overnight issues. 04/03/2017 Patient denied any new complaints. Awaiting to be transferred to inpatient psychiatric unit. 04/04/2017 Patient denied any new complaints. Awaiting to be transferred to inpatient psychiatric unit. Current medications reviewed Objective - Vital Signs Vital signs: Vital Signs Temp 98.5 F 04/04/17 15:00 Pulse 106 H 04/04/17 15:29 Resp 16 04/04/17 15:29 BP 120/75 04/04/17 15:00 Pulse Ox 95 04/04/17 15:00 Intake & Output 04/04/17 04/04/17 04/05/17 06:59 18:59 06:59 Intake Total 500 Output Total 50 Balance 450 Intake: Oral 500 Output: Urine 50 Other: Voiding Method Toilet Toilet # Voids 1 1 - Exam PHYSICAL EXAMINATION: Patient is lying in the bed comfortably, no acute distress, awake alert and oriented.. HEENT: Normocephalic. Neck is supple. Pupils reactive. Nostrils clear. Oral cavity is moist. Ears reveal no drainage. Neck reveals no JVD, carotid bruits, or thyromegaly. CHEST EXAMINATION: Trachea is central. Symmetrical expansion. Lung norton clear to auscultation and percussion. CARDIAC: Normal S1, S2 with no gallops. No murmurs ABDOMEN: Soft. Bowel sounds normal. No organomegaly. No abdominal bruits. Extremities: reveal no edema. No clubbing or cyanosis Neurologically awake, alert, oriented x3 with well-coordinated movements. No focal deficits noted Skin: No rash or skin lesions. Psychiatric: Cooperative. Nonsuicidal Musculoskeletal: No joint swelling or deformity. Normal range of motion. - Labs CBC & Chem 7: 04/01/17 05:13 04/01/17 05:13 Assessment and Plan Assessment: #1 acute drug overdose with Seroquel and Lamictal #2 depression and suicide attempt #3 previous history of psychiatric admission #4 hypokalemia Plan: Patient is tolerating oral diet and continue with supportive care. Hemodynamically stable. Psychiatric is following We'll continue to follow closely and further recommendations based on the clinical course. Awaiting transfer to inpatient psychiatric unit.
[2017-04-05] MEDS: ENOXAPARIN 40 MG/0.4 ML SYRINGE SQ SCH (07:23)
[2017-04-05] MEDS: clonazePAM 0.5 MG TAB PO SCH ×2 (07:24→15:27)
[2017-04-05] MEDS: NICOTINE 21MG/24HR PATCH TRANSDERM SCH (07:24)
[2017-04-05] MEDS: lamoTRIgine 100 MG TAB PO SCH ×2 (07:24→21:40)
[2017-04-05] MEDS: PANTOPRAZOLE 40 MG TABLET PO SCH ×2 (07:24→16:54)
--- NOTE | 2017-04-05 21:34 | P.PN ---
Subjective Principal diagnosis: Bipolar disorder, unspecified Interval History: Patient is 41 year old female who recently overdosed on Seroquel + Lamictal with intention of . This was patient's 5th SA, 4th this last year. Patient is awake, alert, cooperative with interview today. Patient reports tolerating Saphris well with no adverse side effects. Patient is agreeable to increasing dose to BID. Patient continues to appear hearty and has positive disposition and is eager to transfer out and begin inpatient psychiatric care. Review of medical record indicates patient should be able to be transferred to outside psychiatric hospital tomorrow. At this time, patient denies SI/HI/AVH. Mental Status Exam: Appearance: alert, well groomed, hospital garb, appears stated age Behavior: no psychomotor agitation or psychomotor retardation, no abnormal movements, fair eye contact Attitude: cooperative Speech: normal rate, rhythm, fluency, articulation, volume, and prosody; primary language: Iranian Mood: mildly anxious Affect: reactive, full range Thought processes: linear Thought content: patient does not appear to be responding to internal stimuli; patient denies auditory and visual hallucinations, no delusions appreciated Insight: fair? Judgment:exceptionally poor Cognitive: oriented to all 3 spheres, average intelligence Updated Regimen: Asenapine (Saphris) 5 mg SUBLINGUAL BID KELLY Clonazepam (Klonopin) 1 mg PO HS KELLY Clonazepam (Klonopin) 0.5 mg PO BID@0900,1300 KELLY Lamotrigine (Lamictal) 100 mg PO BID KELLY Objective - Vital Signs Vital signs: Vital Signs Temp 98.6 F 04/05/17 14:58 Pulse 105 H 04/05/17 16:00 Resp 18 04/05/17 16:00 BP 123/75 04/05/17 14:58 Pulse Ox 97 04/05/17 14:58 Intake & Output 04/05/17 04/05/17 04/06/17 06:59 18:59 06:59 Intake Total 540 Balance 540 Intake: Oral 540 Other: Voiding Method Toilet Toilet # Voids 1 2 - Labs CBC & Chem 7: 04/01/17 05:13 04/01/17 05:13 Assessment and Plan (1) Bipolar disorder Current Visit: Yes Status: Acute Code(s): F31.9 - BIPOLAR DISORDER, UNSPECIFIED SNOMED Code(s): 34662061 (2) Borderline personality disorder Current Visit: Yes Status: Acute Code(s): F60.3 - BORDERLINE PERSONALITY DISORDER SNOMED Code(s): 96777656 (3) Antipsychotic overdose Current Visit: Yes Status: Acute Code(s): T43.501A - POISONING BY UNSP ANTIPSYCHOT/NEUROLEPT, ACCIDENTAL, INIT SNOMED Code(s): 64188502 (4) Overdose of anticonvulsant Current Visit: Yes Status: Acute Code(s): T42.71XA - POISN BY UNSP ANTIEPLPTC AND SED-HYPNTC DRUGS, ACC, INIT SNOMED Code(s): 680468552
[2017-04-05] MEDS: clonazePAM 1 MG TAB PO SCH (21:40)
[2017-04-05] MEDS: ASENAPINE 5 MG TAB SUBLINGUAL SCH (22:04)
--- NOTE | 2017-04-05 23:18 | P.PN ---
Subjective Progress Note Date: 04/05/17 Principal diagnosis: Drug overdose and attempted suicide Patient is a 41-year-old female with a past medical history of depression and multiple suicide attempts and psychiatric admissions was brought to the ER for evaluation of unresponsive. Patient's found passed out in the parking lot at the [employer] car. Patient was mildly responsive to Narcan per EMS but has remained unresponsive. Patient apparently took Seroquel. Patient is arousable but still very somnolent. She is saturating well on nausea cannula. Cannot provide any history at this time. History obtained from otherwise EMS and patient's chart. UDS is positive for tricyclic antidepressants and marijuana 04/01/2017 Patient is more awake and oriented today. Patient admits that she took Seroquel and Lamictal. No nausea vomiting or abdominal pain. No headache or dizziness. Hemodynamically stable. Patient is being transferred to medical floor. Seen by psychiatry. 04/02/2017 Patient denied any new complaints today. Patient was petitioned for inpatient psychiatric unit transfer. No fever no chills. No complaints of chest pain or short of breath. No other acute overnight issues. 04/03/2017 Patient denied any new complaints. Awaiting to be transferred to inpatient psychiatric unit. 04/04/2017 Patient denied any new complaints. Awaiting to be transferred to inpatient psychiatric unit. 04/05/2017 Patient denied any new complaints today Current medications reviewed Objective - Vital Signs Vital signs: Vital Signs Temp 98.6 F 04/05/17 14:58 Pulse 105 H 04/05/17 16:00 Resp 18 04/05/17 16:00 BP 123/75 04/05/17 14:58 Pulse Ox 97 04/05/17 14:58 Intake & Output 04/05/17 04/05/17 04/06/17 06:59 18:59 06:59 Intake Total 540 Balance 540 Intake: Oral 540 Other: Voiding Method Toilet Toilet # Voids 1 2 - Exam PHYSICAL EXAMINATION: Patient is lying in the bed comfortably, no acute distress, awake alert and oriented.. HEENT: Normocephalic. Neck is supple. Pupils reactive. Nostrils clear. Oral cavity is moist. Ears reveal no drainage. Neck reveals no JVD, carotid bruits, or thyromegaly. CHEST EXAMINATION: Trachea is central. Symmetrical expansion. Lung norton clear to auscultation and percussion. CARDIAC: Normal S1, S2 with no gallops. No murmurs ABDOMEN: Soft. Bowel sounds normal. No organomegaly. No abdominal bruits. Extremities: reveal no edema. No clubbing or cyanosis Neurologically awake, alert, oriented x3 with well-coordinated movements. No focal deficits noted Skin: No rash or skin lesions. Psychiatric: Cooperative. Nonsuicidal Musculoskeletal: No joint swelling or deformity. Normal range of motion. - Labs CBC & Chem 7: 04/01/17 05:13 04/01/17 05:13 Assessment and Plan Assessment: #1 acute drug overdose with Seroquel and Lamictal #2 depression and suicide attempt #3 previous history of psychiatric admission #4 hypokalemia Plan: Patient is tolerating oral diet and continue with supportive care. Hemodynamically stable. Psychiatric is following. No suicidal or homicidal ideation Awaiting transfer to inpatient psychiatric unit.
[2017-04-06 07:39] VITALS: RESP 18
[2017-04-06] MEDS: NICOTINE 21MG/24HR PATCH TRANSDERM SCH (08:07)
[2017-04-06] MEDS: clonazePAM 0.5 MG TAB PO SCH ×2 (08:07→13:24)
[2017-04-06] MEDS: PANTOPRAZOLE 40 MG TABLET PO SCH ×2 (08:07→17:41)
[2017-04-06] MEDS: lamoTRIgine 100 MG TAB PO SCH ×2 (08:08→19:57)
[2017-04-06] MEDS: ENOXAPARIN 40 MG/0.4 ML SYRINGE SQ SCH (08:12)
[2017-04-06] MEDS: ASENAPINE 5 MG TAB SUBLINGUAL SCH ×2 (09:33→19:57)
[2017-04-06 15:02] VITALS: BP 121/72; PULSE 101; TEMP 98.3
--- NOTE | 2017-04-06 15:55 | P.DS ---
Providers Date of admission: 03/31/17 16:47 Attending physician: Jayne Austin Consults: 03/31/17 16:47 Consult Physician Routine Consulting Provider: Afshin Stewart Consult Reason/Comments: icu Do you want consulting provider notified?: Yes 04/01/17 02:19 Consult Physician Routine Consulting Provider: Jovani Lanza Consult Reason/Comments: Psych Do you want consulting provider notified?: Yes, Notify in am Primary care physician: Stated None Hospital Course: Final Diagnoses: #1 acute drug overdose with Seroquel and Lamictal #2 depression and suicide attempt #3 previous history of psychiatric admission #4 Bipolar DIsorder, Borderline Personality Disorder Hospital Course:Patient is a 41-year-old female with a past medical history of depression and multiple suicide attempts and psychiatric admissions was brought to the ER for evaluation of unresponsive. Patient's found passed out in the parking lot at the [employer] car. Patient was mildly responsive to Narcan per EMS but has remained unresponsive. Patient apparently took Seroquel. Patient is arousable but still very somnolent, saturated well on nausea cannula.UDS is positive for tricyclic antidepressants and marijuana. Evaluated by Psychiatry, recommends patient be transferred to outside psychiatric hospital. Significant clinical improvement. Patient has been cleared for discharge by psychiatry to [facility]. Patient is being discharged in a stable condition with guarded prognosis. The impression and plan of care has been dictated as directed. : I performed a history and examination of this patient, discussed the same with the dictator. I agree with the dictator's note ,documented as a scribe. Any additional findings or plans will be noted. Patient Condition at Discharge: Stable Plan - Discharge Summary Discharge Rx Participant: No New Discharge Prescriptions: No Action QUEtiapine [SEROquel] 50 mg PO BID QUEtiapine FUMARATE [SEROquel] 300 mg PO HS clonazePAM [KlonoPIN] 1 mg PO BID Loperamide [Imodium] 2 mg PO QID MDD 4 tablets lamoTRIgine [LaMICtal] 75 mg PO BID Discharge Medication List Loperamide [Imodium] 2 mg PO QID MDD 4 tablets 03/31/17 [History] QUEtiapine FUMARATE [SEROquel] 300 mg PO HS 03/31/17 [History] QUEtiapine [SEROquel] 50 mg PO BID 03/31/17 [History] clonazePAM [KlonoPIN] 1 mg PO BID 03/31/17 [History] lamoTRIgine [LaMICtal] 75 mg PO BID 03/31/17 [History] Follow up Appointment(s)/Referral(s): None,Stated [Primary Care Provider] - 1-2 days Patient Instructions/Handouts: Bipolar Disorder (DC), Borderline Personality Disorder (DC) Activity/Diet/Wound Care/Special Instructions: [facility] Discharge Disposition: TRANSFER TO PSYCH HOSP/UNIT
[2017-04-06] MEDS: clonazePAM 1 MG TAB PO SCH (19:57)
== END 2017-04-06 20:30 | DRG 812 ==
LOC: EC 14:20 → 6ICU 16:47 → 5MS5E 04-01 17:50
PROVIDERS: ADMIT Hospitalist; ATTEND Hospitalist
PROC: 5A1935Z Respiratory Ventilation, Less than 24 Consecutive Hours (ICD-10-PCS; principal; 2017-03-31)
PROC: 0BH18EZ Insertion of Endotracheal Airway into Trachea, Via Natural or Artificial Opening Endoscopic (ICD-10-PCS; principal; 2017-03-31)
DX: T43.592A Poisoning by other antipsychotics and neuroleptics, intentional self-harm, initial encounter (principal); J96.01 Acute respiratory failure with hypoxia; G92 Toxic encephalopathy; T42.6X2A Poisoning by other antiepileptic and sedative-hypnotic drugs, intentional self-harm, initial encounter; F31.9 Bipolar disorder, unspecified; E87.6 Hypokalemia; F17.200 Nicotine dependence, unspecified, uncomplicated; F41.9 Anxiety disorder, unspecified; F60.3 Borderline personality disorder; K21.9 Gastro-esophageal reflux disease without esophagitis; Y92.481 Parking lot as the place of occurrence of the external cause; Z79.899 Other long term (current) drug therapy
CPT/HCPCS: 36415; 36600; 71010; 80053; 80306; 80320; 81001; 81025; 82550; 82553; 82805; 83520; 83690; 83735; 84100; 84484; 85025; 85027; 85610; 85730; 87070; 87205; 93005; 94002; 94003; 94760; 96360; 96361; 96365; 96375; 99285